=== PATIENT | male | born 1975 | race African-American/Black ===

== ENCOUNTER 2019-05-22 07:22 | Day surgery (SDC) | payer MEDICARE ==
[2019-05-22] VITALS (11 sets, daily range): BP systolic 110–136; BP diastolic 72–90; PULSE 70–79; RESP 10–39; Ht 172.7 cm; Wt 89.0 kg
[~2019-05-22] VITALS: Ht 172.7 cm; Wt 89.0 kg
[~2019-05-22 07:22] MED LIST: AMLO-218 PO; CLON-230; LIT300 PO; METO-429 PO; QUET400T PO
[2019-05-22] MEDS ORDERED: SOD CHLORIDE 0.9% 1,000 ML IV ONE (11:00)
[2019-05-22] MEDS ORDERED: CEFAZOLIN 2 GM/50 ML (PMX) 50 ML IVPB ONE (11:00)
[2019-05-22] MEDS ORDERED: FENTAnyl 50 MCG/ML VIAL IV PRN ×3 (11:30)
[2019-05-22] MEDS ORDERED: DIPHENHYDRAMINE 50 MG INJ IV PRN (11:30)
[2019-05-22] MEDS ORDERED: METOCLOPRAMIDE 10 MG INJ IV PRN (11:30)
[2019-05-22] MEDS ORDERED: HYDROmorphONE 1 MG/5 ML IV SYRINGE IV PRN ×3 (11:30)
[2019-05-22] MEDS ORDERED: EPHEDrine 25 MG/5 ML SYG IV PRN (11:30)
[2019-05-22] MEDS ORDERED: MEPERIDINE 25 MG INJ IV PRN (11:30)
[2019-05-22] MEDS ORDERED: hydrALAzine 20 MG INJ IV PRN (11:30)
[2019-05-22] MEDS ORDERED: ONDANSETRON 4 MG INJ IV PRN (11:30)
[2019-05-22] MEDS ORDERED: LABETALOL HCL 20MG INJ IV PRN (11:30)
[2019-05-22] MEDS ORDERED: OXYCODONE/ACETAMINOPHEN (5/325) TAB PO PRN (11:30)
[2019-05-22] MEDS ORDERED: ROPIVACAINE 0.5 % 30 ML VIAL ONE (11:45)
[2019-05-22] MEDS ORDERED: MIDAZOLAM 1 MG/ML 2 ML INJ ONE (11:45)
[2019-05-22] MEDS ORDERED: PROPOFOL 20 ML ONE (11:45)
[2019-05-22] MEDS ORDERED: ROCURONIUM 50 MG INJ ONE (11:45)
[2019-05-22] MEDS ORDERED: FENTAnyl 50 MCG/ML VIAL ONE (11:45)
[2019-05-22] MEDS ORDERED: SEVOFLURANE 15 MIN ONE (11:47)
[2019-05-22] MEDS ORDERED: KETOROLAC 30 MG INJ ONE (12:31)
[2019-05-22] MEDS ORDERED: SUGAMMADEX SODIUM 200 MG/2 ML VIAL IV ONE (12:31)
[2019-05-22] MEDS ORDERED: DEXAMETHASONE 4 MG/ML 5 ML INJ ONE (12:31)
[2019-05-22] MEDS ORDERED: METOCLOPRAMIDE 10 MG INJ ONE (12:31)
[2019-05-22] MEDS ORDERED: ONDANSETRON 4 MG INJ ONE (12:31)
== END 2019-05-22 14:35 | disposition home or self-care (01) ==
LOC: SDS 07:22
PROVIDERS: ATTEND Surgery
DX: K43.6 Other and unspecified ventral hernia with obstruction, without gangrene (principal); I10 Essential (primary) hypertension
CPT/HCPCS: 49653; 80053; 85025; 85610; 85730; J0690; J1100; J1885; J2250; J2405; J2765; J2795; J3010